=== PATIENT | female | born 1945 | race Caucasian/White ===

== ENCOUNTER → 2023-01-09 12:21 | Outpatient (CLI) | payer MEDICARE, SELFPAY ==
[2023-01-09 13:02] LABS: Add Manual Diff / Slide Review NO; Basophils Absolute Auto 100 /uL (0-100); Eosinophils Absolute Auto 100 /uL (0-450); Eosinophils Percent Auto 1.2 % (2-4); Hematocrit 40.9 % (36-46); Hemoglobin 13.7 g/dL (12.0-16.0); Lymphocytes Absolute Auto 1500 /uL (1100-4500); Lymphocytes Percent Auto 16.6 % (25-40); Mean Corpuscular HGB Conc 33.5 % (30-36); Mean Corpuscular Hemoglobin 28.4 PG (26-34); Mean Corpuscular Volume 84.7 fL (80-100); Monocytes Absolute Auto 600 /uL (0-900); Neutrophils Absolute Auto 6600 /uL (1500-7000); Neutrophils Percent Auto 74.2 % (50-75); Platelet Count 260 X10^3/uL (150-400); Red Blood Cell Count 4.83 X10^6/uL (4.0-5.2); Red Cell Distribution Width 14.5 % (11.6-14.8); White Blood Cell Count 8.9 X10^3/uL (4.5-11.0)
[2023-01-09 13:39] LABS: Alanine Aminotransferase 20 IU/L (<35); Albumin 3.9 g/dL (3.5-5.0); Albumin Globulin Ratio 1.3 (1.0-2.8); Alkaline Phosphatase 77 U/L (38-126); Aspartate Aminotransferase 24 IU/L (14-36); BUN Creatinine Ratio 16.4 (6-22); Bilirubin Total 0.9 mg/dL (0.2-1.3); Blood Urea Nitrogen 12 mg/dL (7-17); Calcium 8.8 mg/dL (8.4-10.2); Carbon Dioxide 29 mmol/L (22-32); Chloride 103 mmol/L (98-107); Estimated Glomerular Filt Rate > 60 mL/min (>60); Globulin 2.9 g/dL (1.7-4.1); Glucose 132 mg/dL (80-110); HEMOLYSIS < 15 (0-50); Potassium 4.4 mmol/L (3.4-5.1); Sodium 139 mmol/L (137-145); Total Protein 6.8 g/dL (6.3-8.2)
[2023-01-09 13:54] LABS: Free T4, Direct Thyroxine 0.95 ng/dL (0.78-2.19)
[2023-01-09 14:08] LABS: Thyroid Stimulating Hormone 1.27 uIU/mL (0.47-4.68)
[2023-01-10 04:38] LABS: Cholesterol HDL Ratio 5.1 ratio (0.0-4.4); Cholesterol,Total 202 mg/dL (100-199); HDL Cholesterol 40 mg/dL (>39); LDL Cholesterol Cal 140 mg/dL (0-99); Triglycerides 120 mg/dL (0-149); VLDL Cholesterol Cal 22 mg/dL (5-40)
== END ==
PROVIDERS: Referring Provider Nurse Practitioner Family; Visit Provider Nurse Practitioner Family
DX: R03.0 Elevated blood-pressure reading, without diagnosis of hypertension (principal); Z13.1 Encounter for screening for diabetes mellitus; Z13.220 Encounter for screening for lipoid disorders
CPT/HCPCS: 36415; 80053; 80061; 84439; 84443; 85025

== ENCOUNTER → 2024-07-20 13:33 | Outpatient (CLI) | payer MEDICARE, SELFPAY ==
--- NOTE | 2024-07-26 12:47 | DIET.OUTPTC ---
Dietary Outpatient Consultation Note Consultation Date: 07/20/2024 Assessment: 79 y F referred to dietitian for BMI 29.0-29.9. Pt reports wanting to go over current nutrition pattern and needing some encouragement to reduce nighttime snacking. Reports variable dietary intake depending on food available. Contributes weight gain to being less active than normal this past winter. Also reports night time snacking being barrier to weight loss, but when obtaining dietary recall pt reports only having junk food before bed 1-2x/wk and sometimes not even at all, depending on what is bought at grocery store. Reports some nights for dinner just having a veggie (i.e eating a bunch of asparagus) Diet recall: B-coffee, banana, toast with jam or butter L-tuna salad sandwich with dark bread and celery OR senior center D-broth, veggies, noodles OR big salad with veggies Night snack: 1-2x/wk having square of chocolate Water Only likes chx, fish, eggs, and vegetarian protein sources Every day regular BM. Denies N/V/D/C. lactose intolerant Ht: 5 ft 6.5 in Wt: 183 lb BMI: 29.0 UBW: limited hx Nutrition Diagnosis: Food and nutrition related knowledge deficit r/t limited prior formal nutrition educ aeb wanting to review current nutrition patterns, lack of protein source at dinner Interventions: Discussed and provided handouts on the following: -Balanced meals and snacks in line with myplate, Mediterranean style of eating -Portion sizing -Education on label reading -Assessing hunger/fullness level -Calcium food sources -Role of protein and good protein sources, handout on protein source provided -Physical activity -Brainstormed appropriate meal plan based on food preferences Goals: -Resume activity 3-4x/wk 30-60 mins like gardening and walks, indoor activities when it rains like gym or videos that involve strength training -Good protein source at breakfast and dinner to help promote satiety, such as eggs and beans in soup EER: 75 g protein (1g/kg of adjusted IBW per age) Monitoring/Evaluations: f/u PRN. Pt confident in goals and reports appt was more for encouragement and review. Electronically Signed by: Adamaris Pichardo 07/26/24 12:[address] [address]
== END ==
LOC: DIET 13:33
PROVIDERS: PCP Family Medicine; Referring Provider Family Medicine
DX: Z71.3 Dietary counseling and surveillance (principal); Z68.29 Body mass index [BMI] 29.0-29.9, adult
CPT/HCPCS: 97802

== ENCOUNTER → 2024-09-03 11:43 | Outpatient (CLI) | payer MEDICARE, SELFPAY ==
[2024-09-03 12:39] LABS: Add Manual Diff / Slide Review NO; Basophils Absolute Auto 100 /uL (0-100); Basophils Percent Auto 0.7 % (0-2); Eosinophils Absolute Auto 100 /uL (0-450); Eosinophils Percent Auto 1.7 % (2-4); Hematocrit 42.6 % (36-46); Hemoglobin 14.1 g/dL (12.0-16.0); Lymphocytes Absolute Auto 1800 /uL (1100-4500); Lymphocytes Percent Auto 23.8 % (25-40); Mean Corpuscular Hemoglobin 28.3 PG (26-34); Mean Corpuscular Volume 85.6 fL (80-100); Monocytes Absolute Auto 700 /uL (0-900); Monocytes Percent Auto 8.7 % (3-14); Neutrophils Absolute Auto 5000 /uL (1500-7000); Neutrophils Percent Auto 65.1 % (50-75); Platelet Count 259 X10^3/uL (150-400); Red Blood Cell Count 4.97 X10^6/uL (4.0-5.2); Red Cell Distribution Width 14.7 % (11.6-14.8); White Blood Cell Count 7.6 X10^3/uL (4.5-11.0)
[2024-09-03 12:56] LABS: Alanine Aminotransferase 18 IU/L (<35); Albumin 4.3 g/dL (3.5-5.0); Albumin Globulin Ratio 1.8 (1.0-2.8); Alkaline Phosphatase 82 U/L (38-126); Aspartate Aminotransferase 24 IU/L (14-36); Bilirubin Total 1.1 mg/dL (0.2-1.3); Blood Urea Nitrogen 12 mg/dL (7-17); Calcium 8.9 mg/dL (8.4-10.2); Carbon Dioxide 28 mmol/L (22-32); Chloride 102 mmol/L (98-107); Cholesterol 222 mg/dL (140-199); Estimated Glomerular Filt Rate > 60 mL/min (>60); Globulin 2.4 g/dL (1.7-4.1); Glucose 94 mg/dL (70-99); HDL Cholesterol 40 mg/dL (40-60); HEMOLYSIS < 15 (0-50); LDL Cholesterol Calculated 162 mg/dL (<100); Potassium 4.7 mmol/L (3.4-5.1); Sodium 137 mmol/L (137-145); Total Protein 6.7 g/dL (6.3-8.2); Triglycerides 99 mg/dL (35-150)
[2024-09-03 13:44] LABS: Vitamin B12 175 pg/mL (239-931)
== END ==
PROVIDERS: PCP Family Medicine; Referring Provider Family Medicine; Visit Provider Family Medicine
DX: Z13.220 Encounter for screening for lipoid disorders (principal); R20.0 Anesthesia of skin; R20.2 Paresthesia of skin; H53.9 Unspecified visual disturbance; H91.90 Unspecified hearing loss, unspecified ear; Z86.69 Personal history of other diseases of the nervous system and sense organs; Z79.4 Long term (current) use of insulin
CPT/HCPCS: 36415; 80053; 80061; 82607; 85025

== ENCOUNTER 2025-01-01 16:21 | Emergency (ER) | payer MEDICARE, SELFPAY ==
[2025-01-01 16:27] VITALS: BP 141/82; PULSE 94; RESP 19; TEMP 36.4; O2SAT 96; BMI 28.2
--- NOTE | 2025-01-01 16:34 | DI.RAD.S_ITS ---
PROCEDURE: XR KNEE RT 3V INDICATIONS: fall TECHNIQUE: 3 views of the knee were acquired. COMPARISON: None. FINDINGS: Bones: No fractures or dislocations. No suspicious bony lesions. Soft tissues: No joint effusion. No suspicious soft tissue calcifications. IMPRESSION: No acute bony abnormality. Dictated by: Yinka Newman M.D. on 01/01/2025 at 16:53 Approved by: Yinka Newman M.D. on 01/01/2025 at 16:54
--- NOTE | 2025-01-01 16:34 | DI.RAD.S_ITS ---
PROCEDURE: XR SHOULDER RT MIN 2V INDICATIONS: fall TECHNIQUE: 2 views of the shoulder were acquired. COMPARISON: None. FINDINGS: Bones: Common fracture of the proximal humerus at the surgical neck with numerous butterfly fragments and slight impaction. There is mild displacement. Soft tissues: Surgical clips in the axilla IMPRESSION: Severely comminuted proximal humeral fracture Dictated by: Yinka Newman M.D. on 01/01/2025 at 16:54 Approved by: Yinka Newman M.D. on 01/01/2025 at 16:55
--- NOTE | 2025-01-01 16:42 | DI.CT.S_ITS ---
PROCEDURE: CT HEAD/BRAIN WO CON INDICATIONS: fall TECHNIQUE: Noncontrast 4.5 mm thick angled axial sections acquired from the foramen magnum to the vertex, with coronal and sagittal reformats. For radiation dose reduction, the following was used: automated exposure control, adjustment of mA and/or kV according to patient size. COMPARISON: None. FINDINGS: Image quality: Diagnostic. CSF spaces: Basal cisterns are patent. No extra-axial fluid collections. Ventricles are normal in size and shape. Brain: No midline shift. No intracranial mass effect or hemorrhage. Robledo- white matter interface is normal. Skull and face: Calvarium and visualized facial bones are intact, without suspicious lesions. Sinuses: Visualized sinuses and mastoids are clear. IMPRESSION: No acute intracranial pathology. Dictated by: Yinka Newman M.D. on 01/01/2025 at 16:11 Approved by: Yinka Newman M.D. on 01/01/2025 at 16:11
--- NOTE | 2025-01-01 16:42 | DI.CT.S_ITS ---
PROCEDURE: CT CERVICAL SPINE WO CON INDICATIONS: fall TECHNIQUE: Noncontrast 3 mm thick sections acquired from the skull base to the T4 level. Sagittal and coronal reformats were then constructed. For radiation dose reduction, the following was used: automated exposure control, adjustment of mA and/or kV according to patient size. COMPARISON: None. FINDINGS: Image quality: Excellent. Bones: No fractures or dislocations. Visualized superior ribs are intact. Soft tissues: Prevertebral soft tissues are normal in thickness. No paravertebral hematomas. No apical pneumothoraces. IMPRESSION: No displaced fracture or traumatic subluxation. Dictated by: Yinka Newman M.D. on 01/01/2025 at 16:12 Approved by: Yinka Newman M.D. on 01/01/2025 at 16:23
[2025-01-01] MEDS: ACETAMINOPHEN 325 MG TABLET 650 MG PO (16:46)
--- NOTE | 2025-01-01 19:01 | ED_ITS ---
HPI - Fall General Chief Complaint: Fall Stated Complaint: GLF, R shoulder pn Time Seen by Provider: 01/01/25 19:01 Source: patient Mode of arrival: Wheelchair History of Present Illness HPI Narrative: 79-year-old female tripped on surface earlier today this afternoon, fell onto her right shoulder, also scratched her right eyebrow with glasses that were not shattered. No loss of consciousness. Small scrape to right knee, able to bear weight and move her right knee. She has not take blood thinner medications. Related Data Home Medications ?Medication ?Instructions ?Recorded ?Confirmed triamcinolone acetonide 0.1 % 1 applic topical BID PRN 04/23/24 08/20/24 topical ointment Allergies Allergy/AdvReac Type Severity Reaction Status Date / Time No Known Drug Allergies Allergy Verified 01/01/25 16:27 Patient History Medical History (Updated 01/01/25 @ 19:59 by Stuart Madera MD) BMI 29.0-29.9,adult Vision disorder Chicken pox Fractures (~1989) Measles Tinnitus Hearing loss Skin cancer (~2023) Breast cancer (~1999) Surgical History (Updated 04/07/24 @ 19:02 by Mendy Hinson) Anesthesia History of mastectomy (~2018) Family History (Updated 04/07/24 @ 19:03 by Mendy Hinson) Father Alzheimer's disease Mother Cancer Social History (Updated 08/20/24 @ 07:29 by Crystal Nicolas MA) Smoking Status: Never smoker Smoking Status: Never smoker Exam Narrative Exam Narrative: GENERAL: Well-developed patient, in mild distress. HEAD: Small abrasion 1 cm right superior eyebrow region, no suturable laceration, minimal swelling. EYES: Pupils equal round and reactive. Extraocular motions intact. No scleral icterus. No injection or drainage. ENT: Nose without bleeding, purulent drainage. Throat without erythema, ton sillar hypertrophy or exudate. Airway patent. NECK: Trachea midline. Non tender CARDIOVASCULAR: Regular rate and rhythm without murmurs, gallops, or rubs. RESPIRATORY: Clear to auscultation. Breath sounds equal bilaterally. No wheezes, rales, or rhonchi. GASTROINTESTINAL: Abdomen soft, non-tender, nondistended. EXTREMITIES: Right anterior shoulder tenderness without anterior fullness, no AC step-off, distal right upper extremity intact pulses with good cap refill. Moves right hand well. Right anterior knee small abrasion, can extend and fully flex knee, no gross effusion, no gross ligamentous instability. Connor's testing with good end point. No limb length discrepancy, no hip tenderness, no tenderness along femur or foreleg. BACK: Nontender without deformity or crepitance. No flank tenderness. NEURO: AOx3. Motor functions grossly nonfocal. SKIN: No rash or erythema of visible areas Initial Vital Signs Initial Vital Signs: Vital Signs Temperature 97.6 F 01/01/25 16:27 Pulse Rate 94 H 01/01/25 16:27 Respiratory Rate 19 01/01/25 16:27 Blood Pressure 141/82 H 01/01/25 16:27 Pulse Oximetry 96 01/01/25 16:27 Oxygen Delivery Method Room Air 01/01/25 16:27 Course Orders Ordered: ED Orders 01/01/25 19:58 Consult to [facility] Stat Discontinued Medications Acetaminophen (Acetaminophen 325 Mg Tablet) 650 mg PO NOW ONE Stop: 01/01/25 16:43 Last Admin: 01/01/25 16:46 Dose: 650 mg Documented By: AMBROSIO Hydrocodone Bitart/Acetaminophen (Hydrocodone/Acet 5/325 Prepack) 1 bottle MISC DIRECTED ONE Stop: 01/01/25 20:10 Last Admin: 01/01/25 20:17 Dose: 1 bottle Documented By: ABI Bacitracin (Bacitracin Oint 0.9 Gm Pckt) 1 applic TOP NOW ONE Stop: 01/01/25 20:11 Last Admin: 01/01/25 20:17 Dose: 1 applic Documented By: ABI Vital Signs Vital signs: Vital Signs - 8 hr 01/01/25 19:55 01/01/25 19:57 01/01/25 19:57 Pulse Rate 100 H 105 H Respiratory Rate 16 Blood Pressure 154/84 H Pulse Oximetry 92 97 MDM - Fall Imaging Data CT scan - head: Radiologist's Impression: [address] [address] [address] Scan Report Signed Patient: Lucille Soliz MR#: [id number] : 1945 Acct:[id number] Age/Sex: 79 / F Date of Service: 01/01/25 Loc: ED Accession Number: [id number] Procedure: CT head/brain wo con Ordering Provider: Xavier Drake D.O. PROCEDURE: CT HEAD/BRAIN WO CON INDICATIONS: fall TECHNIQUE: Noncontrast 4.5 mm thick angled axial sections acquired from the foramen magnum to the vertex, with coronal and sagittal reformats. For radiation dose reduction, the following was used: automated exposure control, adjustment of mA and/or kV according to patient size. COMPARISON: None. FINDINGS: Image quality: Diagnostic. CSF spaces: Basal cisterns are patent. No extra-axial fluid collections. Ventricles are normal in size and shape. Brain: No midline shift. No intracranial mass effect or hemorrhage. Robledo- white matter interface is normal. Skull and face: Calvarium and visualized facial bones are intact, without suspicious lesions. Sinuses: Visualized sinuses and mastoids are clear. IMPRESSION: No acute intracranial pathology. Dictated by: Yinka Newman M.D. on 01/01/2025 at 16:11 Approved by: Yinka Newman M.D. on 01/01/2025 at 16:11 CT - cervical spine: Radiologist's Impression: [place] [address] CT Scan Report Signed Patient: Lucille Soliz MR#: [id number] : 1945 Acct:[id number] Age/Sex: 79 / F Date of Service: 01/01/25 Loc: ED Accession Number: [id number] Procedure: CT cervical spine wo con Ordering Provider: Xavier Drake D.O. PROCEDURE: CT CERVICAL SPINE WO CON INDICATIONS: fall TECHNIQUE: Noncontrast 3 mm thick sections acquired from the skull base to the T4 level. Sagittal and coronal reformats were then constructed. For radiation dose reduction, the following was used: automated exposure control, adjustment of mA and/or kV according to patient size. COMPARISON: None. FINDINGS: Image quality: Excellent. Bones: No fractures or dislocations. Visualized superior ribs are intact. Soft tissues: Prevertebral soft tissues are normal in thickness. No paravertebral hematomas. No apical pneumothoraces. IMPRESSION: No displaced fracture or traumatic subluxation. Dictated by: Yinka Newman M.D. on 01/01/2025 at 16:12 Approved by: Yinka Newman M.D. on 01/01/2025 at 16:23 Right shoulder x-ray series: Radiologist's Impression: [address] [address] XRay Report Signed Patient: Lucille Soliz MR#: [id number] : 1945 Acct:[id number] Age/Sex: 79 / F Date of Service: 01/01/25 Loc: ED Accession Number: [id number] Procedure: XR shoulder RT 2+ views Ordering Provider: Xavier Drake D.O. PROCEDURE: XR SHOULDER RT MIN 2V INDICATIONS: fall TECHNIQUE: 2 views of the shoulder were acquired. COMPARISON: None. FINDINGS: Bones: Common fracture of the proximal humerus at the surgical neck with numerous butterfly fragments and slight impaction. There is mild displacement. Soft tissues: Surgical clips in the axilla IMPRESSION: Severely comminuted proximal humeral fracture Dictated by: Yinka Newman M.D. on 01/01/2025 at 16:54 Approved by: Yinka Newman M.D. on 01/01/2025 at 16:55 Right knee x-ray series: Radiologist's Impression: [address] [address] XRay Report Signed Patient: Lucille Soliz MR#: [id number] : 1945 Acct:[id number] Age/Sex: 79 / F Date of Service: 01/01/25 Loc: ED Accession Number: [id number] Procedure: XR knee RT 3V Ordering Provider: Xavier Drake D.O. PROCEDURE: XR KNEE RT 3V INDICATIONS: fall TECHNIQUE: 3 views of the knee were acquired. COMPARISON: None. FINDINGS: Bones: No fractures or dislocations. No suspicious bony lesions. Soft tissues: No joint effusion. No suspicious soft tissue calcifications. IMPRESSION: No acute bony abnormality. Dictated by: Yinka Newman M.D. on 01/01/2025 at 16:53 Approved by: Yinka Newman M.D. on 01/01/2025 at 16:54 MDM Narrative Medical decision making narrative: 79-year-old female had mechanical fall, right forehead abrasion, right shoulder pain with tenderness. No loss of consciousness, nausea or vomiting, or focal neuro findings. Advanced age, CT head and cervical spine ordered from triage. CT head noncontrast study, no acute changes. See radiology report. CT cervical spine, arthritic changes noted, no acute traumatic changes. See radiology report. X-ray right knee series, arthritic changes, no acute changes. See radiology report. X-ray right shoulder series, comminuted humeral neck fracture. No dislocation, no mention of any intra-articular component. See radiology report. 1950, case discussed with Orthopedic surgery Dr. Cerrato, who does not believe the additional CT imaging of the right humeral neck fracture is needed at this time, continue in right shoulder sling, see the clinic in follow up, hopefully can be managed non operatively. Consult [facility] orthopedics, with mentioned of Dr. Young. Home pack pain medication. Placed in a sling. Antibiotic ointment to knee abrasion. Follow up with Orthopedic surgery. Discharged home with family. Return precautions discussed. Discharge Plan Departure Patient Disposition: Home Clinical Impression: Fall from ground level, Abrasion of right eyebrow, Closed right humeral fracture, Abrasion of knee Activity Restrictions/Additional Instructions: Mechanical ground level fall with small abrasion over the right eyebrow region, right knee area small abrasion. Pain mostly to the right shoulder area. On x- ray there is a comminuted multiple fragment fracture of the humeral neck of the arm bone, but not obviously extending up into the shoulder joint, per Radiology report. Placed in shoulder sling. CT head and cervical spine of the neck without obvious injuries per radiology reports. X-ray of the right knee without obvious injuries. Home pack of hydrocodone/acetaminophen pain medication given. Case was discussed with Orthopedic surgery on-call Dr. Cerrato, who felt that additional imaging such as CT scan not needed at this time as it does not appear to go into the joint based on radiology report findings. He agrees with shoulder sling, hopes that you can be treated nonsurgically in follow up. Follow up with their clinic, contact information provided. Pain medication provided. Consider use of [id number] antibiotic ointment over your abrasion wounds, twice daily for the next few days. Follow up with Orthopedic surgery, return to this/nearest emergency department for any change worsening symptoms or any concerns prior. Prescriptions: No Action triamcinolone acetonide 0.1 % ointment 1 applic topical BID PRN Referrals: Philip Cerrato MD [Physician, Orthopedic Surgery] Rosaline Salazar DO [Primary Care Provider, Family Practice] Stand Alone Forms: Patient Portal/API
[2025-01-01 19:55] VITALS: PULSE 100; O2SAT 92
[2025-01-01 19:57] VITALS: BP 154/84; PULSE 105; RESP 16; O2SAT 97
[2025-01-01] MEDS: BACITRACIN OINT 0.9 GM PCKT 1 APPLIC TOP (20:17)
== END 2025-01-01 20:26 | disposition home or self-care (01) ==
PROVIDERS: Emergency Provider Emergency Medicine; PCP Family Medicine
DX: S42.301A Unspecified fracture of shaft of humerus, right arm, initial encounter for closed fracture (principal); S00.211A Abrasion of right eyelid and periocular area, initial encounter; S80.211A Abrasion, right knee, initial encounter; W18.30XA Fall on same level, unspecified, initial encounter
CPT/HCPCS: 70450; 72125; 73030; 73562; 99283; 99284